=== PATIENT | male | born 2000 | race Caucasian/White ===

== ENCOUNTER 2021-11-02 20:40 | Emergency (ER) | payer MEDICAID, OTHER ==
[~2021-11-02] VITALS: Ht 170.2 cm; Wt 92.2 kg
[2021-11-02 20:51] VITALS: BP 126/72
--- NOTE | 2021-11-02 20:56 | NUR ---
PT IN RESTROOM FOR URINE COLLECTION.
--- NOTE | 2021-11-02 21:15 | NUR ---
PT TAKEN TO RAD.
--- NOTE | 2021-11-02 21:35 | NUR ---
PT RETURN FROM RADIOLOGY
--- NOTE | 2021-11-02 22:13 | NUR ---
PT TAKEN TO BED 08.
--- NOTE | 2021-11-02 23:20 | NUR ---
21 Y/O M BIB SELF WITH C/OI TESTICULAR PAIN X 3 days. pt states he felt this a month ago buy has back these past three days. A & O x 4. PT DENIES N/F/COUGH. NO PMH.NKA. AMBULATORY. VSS
[2021-11-02] MEDS ORDERED: cefTRIAXone 500 MG in LIDOCAINE MPF 1% 1 ML IM ONE (23:25)
[2021-11-02] MEDS ORDERED: DOXY-690 PO (23:39)
[2021-11-02] MEDS ORDERED: NAPR-54 PO (23:39)
[2021-11-02] MEDS ORDERED: cefTRIAXone 500 MG VIAL ONE (23:46)
[2021-11-02] MEDS ORDERED: LIDOCAINE MPF 1% 5 ML ONE (23:47)
[2021-11-03 00:15] VITALS: BP 143/65
--- NOTE | 2021-11-03 00:15 | NUR ---
Patient discharged with v/s stable. Written and verbal after care instructions given and explained. Patient alert, oriented and verbalized understanding of instructions. Ambulatory with steady gait. All questions addressed prior to discharge. ID band removed. Patient advised to follow up with PMD. Rx of vibramycin and naproxen given. Opportunity to ask questions provided and answered.
--- NOTE | 2021-11-03 00:22 | NUR ---
The patient's care was reviewed and supervised by Brittany Ignacio RN.
== END 2021-11-03 00:15 | disposition home or self-care (01) ==
LOC: MED 20:40
DX: N45.1 Epididymitis (principal)
CPT/HCPCS: 36415; 76870; 81002; 87491; 96372; 99284; J0696; J2001; Q0092

== ENCOUNTER 2022-02-24 16:26 | Emergency (ER) | payer MEDICAID ==
[~2022-02-24] VITALS: Ht 165.1 cm; Wt 83.9 kg
[~2022-02-24 16:26] MED LIST: DOXY-690 PO; NAPR-54 PO
[2022-02-24 16:32] VITALS: BP 138/78
--- NOTE | 2022-02-24 17:34 | NUR ---
PT TAKEN TO ULTRASOUND VIA W/C.
[2022-02-24] MEDS ORDERED: IBUPROFEN 600 MG TAB PO ONE (17:40)
[2022-02-24] MEDS ORDERED: IBUP-2213 PO (19:29)
--- NOTE | 2022-02-24 20:09 | NUR ---
PT CLEARED FOR DISCHARGE BY ISAIAH AMARAL. AT TIME OF DISCHARGE PT NOT FOUND IN LOBBY OR OUTSIDE. PT LEFT WITHOUT DISCHARGE INSTRUCTIONS AT THIS TIME.
== END 2022-02-24 20:09 | disposition home or self-care (01) ==
LOC: MED 16:26
DX: N50.811 Right testicular pain (principal); Z11.3 Encounter for screening for infections with a predominantly sexual mode of transmission; R03.0 Elevated blood-pressure reading, without diagnosis of hypertension; Z79.1 Long term (current) use of non-steroidal anti-inflammatories (NSAID); Z79.2 Long term (current) use of antibiotics
CPT/HCPCS: 76870; 81002; 87491; 99284

== ENCOUNTER 2022-05-09 06:44 | Emergency (ER) | payer MEDICAID ==
[~2022-05-09] VITALS: Ht 172.7 cm; Wt 89.8 kg
[~2022-05-09 06:44] MED LIST changes: +IBUP-2213 PO
[2022-05-09 06:50] VITALS: BP 150/90
--- NOTE | 2022-05-09 06:53 | NUR ---
to bed ambulatory
--- NOTE | 2022-05-09 07:00 | NUR ---
Dr. Snider examining patient.
[2022-05-09] MEDS ORDERED: CLOT1CRE90 TP (07:11)
--- NOTE | 2022-05-09 07:15 | NUR ---
21/M PRESENTS TO ED WITH C/O PENILE IRRITATION X2 DAYS. PATIENT REPORTS SIMILAR SYMPTOMS IN THE PAST AND WAS DX WITH A FUNGAL INFECTION. PATIENT REPORTS IRRITATION AND ITCHINESS TO SITE, DENIES DYSURIA, HEMATURIA OR CONCERN FOR STDS, DENIES RECENT FEVERS OR CHILLS.
[2022-05-09 07:26] VITALS: BP 150/90
--- NOTE | 2022-05-09 07:26 | NUR ---
Patient discharged with v/s stable. Written and verbal after care instructions ABOUT BALANITIS given and explained. Patient alert, oriented and verbalized understanding of instructions. Ambulatory with steady gait. All questions addressed prior to discharge. ID band removed. Patient advised to follow up with PMD. Rx of CLOTRIMAZOLE given. Patient educated on indication of medication including possible reaction and side effects. Opportunity to ask questions provided and answered.
== END 2022-05-09 07:26 | disposition home or self-care (01) ==
LOC: MED 06:44
DX: N48.1 Balanitis (principal); Z79.899 Other long term (current) drug therapy
CPT/HCPCS: 99282